=== PATIENT | female | born 1970 | race Caucasian/White ===

== ENCOUNTER → 2021-03-13 | Outpatient (CLI) | payer OTHER ==
[~2021-03-13] VITALS: Ht 165.1 cm; Wt 68.5 kg
[~2021-03-13] MED LIST: ASPI-1238 PO; EZET10TA17 PO; MULT-593 PO; ROSU20TA2 PO; VENL150C PO
== END | disposition home or self-care (01) ==
LOC: PREOP 05:34
PROVIDERS: ATTEND Surgery
DX: Z01.818 Encounter for other preprocedural examination (principal)

== ENCOUNTER 2021-03-19 08:01 | Day surgery (SDC) | payer OTHER ==
[2021-03-19] VITALS (8 sets, daily range): BP systolic 118–135; BP diastolic 59–107
[~2021-03-19] VITALS: Ht 165 cm; Wt 68.5 kg
--- OUTSIDE RECORDS SUMMARY | 2021-03-19 08:04 | XMS REPORT | CCD ---
Author Author Sarahi Fuentes Organization Radha Chau MD, [facility] Address [address] [place] [address] Phone Care Team Providers Care Building Rental Superintendent Name Role Phone Radha Chau PP Unavailable CCM Unavailable Summary Purpose Interface Exchange Insurance Providers Payer name Policy type / Coverage type Covered democrat ID Effective Begin Date Effective End Date [employer] and Llfe Insurance Commercial Insurance [id number] U nknown Unknown Family history Mother Diagnosis Age At Onset Osteoporosis Unknown Arthritis Unknown Father Diagnosis Age At Onset Hyperlipidemia Unknown Skin cancer Unknown Coronary Artery Disease Unknown Social History Social History Element Codes Description Effective Dates Marital status Unknown Ishan 02/08/2021 Number of children Unknown 3 02/08/[address]: 2361281 Quit less than 5 yea rs ago mar 2020 02/08/2021 Allergies, Adverse Reactions, Alerts Substance Reaction Codes Entered Date Inactivated Date Status hydrocodone pruritis, hives, Unknown 02/08/2021 No Inactive Date Active * OTHER REACTION - SEE ANSWER BOX toradol: hives/pruritis Unknown 02/08/2021 No Inactive Date Active SULFA(SULFONAMIDE ANTIBIOTICS) _, Unknown 02/08/2021 No In active Date Active ultram hives, pruritis, RxNorm: 41773 02/08/2021 No Inactive Vito e Active aleve pruritis RxNorm: 358179 02/08/2021 No Inactive Date Acti ve Problems Condition Codes Effective Dates Condition Status aortic aneurysm Unknown 02/08/2021 Active Hyperlipidemia Unknown 02/08/2021 Active Chronic left hip pain ICD-10: M25.552 ICD-9: 719.45 02/08/2021 Active Generalized anxiety disorder ICD-10: F41.1 ICD-9: 300.02 02/08/2021 Active Mixed hyperlipidemia ICD-10: E78.2 ICD-9: 272.4 02/08/2021 Active Other chronic pain ICD-10: G89.29 02/08/2021 Active Right knee pain ICD-10: m25.561 ICD-9: 719.46 02/08/2021 Active Medications Medication Codes Instructions Start Date Stop Date Status Fill Instructions Crestor 20 mg tablet RxNorm: 143476 1 Tablet(s) Oral every day 01/2607/21/2021 Active oxycodone-acetaminophen 5 mg-325 mg tablet RxNorm: 8968696 1 Tablet(s) Oral two times a day 02/16/2021 03/17/2021 Active oxycodone-acetaminophen 5 mg-325 mg tablet RxNorm: 3000826 1 Tablet(s) Oral two times a day 02/16/2021 02/16/2021 Inactive omega 3 500 cn-hon-wpb-B12 500 mcg-FA 1 mg-B6 12.5 mg- phytosterol cap RxNorm: 926474 1 Capsule(s) Oral every day 02/08/2021 No Stop Date Active Effexor XR 150 mg capsule,extended release RxNorm: 917512 1 Capsule(s) Oral every day 02/08/2021 No Stop Date Active Crestor 20 mg tablet RxNorm: 535544 1 Tablet(s) Oral every day 01/2402/22/2021 Inactive aspirin 81 mg chewable tablet RxNorm: 257724 1 Tablet(s) Oral e day 02/08/2021 No Stop Date Active acetaminophen 325 mg capsule RxNorm: 753726 2 Capsule(s) Oral a s needed 02/08/2021 No Stop Date Active Probiotic 100 billion cell capsule RxNorm: 1 Capsule(s) Oral every day 02/08/2021 No Stop Date Active Zetia 10 mg tablet RxNorm: 951898 1 Tablet(s) Oral every day 2020 No Stop Date Active Multi Vitamin oral RxNorm: oral 02/08/2021 Active oxycodone 5 mg capsule RxNorm: 3029675 oral 02/08/2021 02/15/2021 Inactive Medication Administered No Medication Administered data Immunizations No Immunization data Results No Results data Procedures No Procedures data Vital Signs Date Vital 02/08/2021 Blood Pressure 1: 130/72 Code: 8480-6 BMI: 24.8 Code: 16589-1 Heart Rate 1: 60 bpm Height: 5'5" Code: 8302-2 SpO2: 98% Temperature: 3 6.2 (C) / 97.2 (F) Weight: 149 lbs Code: 66385-6 Functional Status No Functional Status data Reason For Visit Reason For Visit Effective Dates Notes hip pain 02/08/2021 Encounters Encounter Performer Location Codes Date () OFFICE VISIT, NEW - LEVEL 3 Diagnosis: Other chronic pain[ICD10: G89.29] Diagnosis: Chronic left hip pain[ICD10: M25.552] Diagnosis: Right knee pain[ICD10: m25.561] Diagnosis: Generalized anxiety disorder[ICD10: F41.1] Diagnosis: Mixed hyperlipidemia[ICD10: E78.2] [facility] CPT-4: 34918 02/08/2021 Plan of Care Planned Activity Notes Codes Status Date Visit Plan: Chronic hip and knee pain - pt has chronic pain - has been maintained on current medications, has not sought out other medications, only uses PRN pain medications as directed, and understands the consequences of over- medication. Hyperlipidemia - check fasting labs Chronic anxiety - the pt has symptoms of chronic anxiety that have been fairly well controlled since the last office visit. The pt has expected periods of exacerbation with abatement of the symptoms with change in situational exposure. No change in current medications. 02/08/2021 Appointment: Brielle Fuentes WPtel: [address] [place], [place] [phone] New Patient 02/08/2021 Patient Education: Patient Medication Summary Completed 02/08/2021 Care Plan: Cbc With Differential Pending 02/08/2021 Care Plan: Comp Metabolic Pending Care Plan: Lipid Pending 02/08/2021 Care Plan: Tsh Pending 02/08/2021 Instructions Comment . Chronic hip and knee pain - pt has chr onic pain - has been maintained on current medications, has not sought out other medications, only uses PRN pain medications as directed, and understands the consequences of over-medication. Hyperlipidemia - check fasting labs Chronic anxiety - the pt has symptoms of chronic anxiety that have been fairly well controlled since the last office visit. The pt has expected periods of exacerbation with abatement of the symptoms with change in situational exposure. No change in current medications. Medical Equipment No Medical Equipment data Health Concerns Section Health Concerns data not found Goals Section Goals data not found Interventions Section Interventions data not found Health Status Evaluations/Outcomes Section Health Status Evaluations/Outcomes data not found Advance Directives No Advance Directive data
--- OUTSIDE RECORDS SUMMARY | 2021-03-19 08:04 | XMS REPORT | CCD ---
Author Author Sarahi Fuentes Organization Radha Chau MD, [facility] Address [address] [place] [address] Phone Care Team Providers Care Drafter Plumbing Name Role Phone Radha hCau PP Unavailable CCM Unavailable Summary Purpose Interface Exchange Insurance Providers Payer name Policy type / Coverage type Covered republican ID Effective Begin Date Effective End Date [employer] and Llfe Insurance Commercial Insurance [id number] U nknown Unknown Family history Mother Diagnosis Age At Onset Osteoporosis Unknown Arthritis Unknown Father Diagnosis Age At Onset Hyperlipidemia Unknown Skin cancer Unknown Coronary Artery Disease Unknown Social History Social History Element Codes Description Effective Dates Marital status Unknown Ishan 02/08/2021 Number of children Unknown 3 02/08/[address]: 5258433 Quit less than 5 yea rs ago mar 2020 02/08/2021 Allergies, Adverse Reactions, Alerts Substance Reaction Codes Entered Date Inactivated Date Status hydrocodone pruritis, hives, Unknown 02/08/2021 No Inactive Date Active * OTHER REACTION - SEE ANSWER BOX toradol: hives/pruritis Unknown 02/08/2021 No Inactive Date Active SULFA(SULFONAMIDE ANTIBIOTICS) _, Unknown 02/08/2021 No In active Date Active ultram hives, pruritis, RxNorm: 84892 02/08/2021 No Inactive Vito e Active aleve pruritis RxNorm: 213959 02/08/2021 No Inactive Date Acti ve Problems [...] Start Date Stop Date Status Fill Instructions Zetia 10 mg tablet RxNorm: 903999 1 Tablet(s) Oral every day 202007/12/2021 Active Crestor 20 mg tablet RxNorm: 527933 1 Tablet(s) Oral every day 01/2607/21/2021 Active oxycodone-acetaminophen 5 mg-325 mg tablet RxNorm: 6243097 1 Tablet(s) Oral two times a day 02/16/2021 03/17/2021 Active oxycodone-acetaminophen 5 mg-325 mg tablet RxNorm: 6794312 1 Tablet(s) Oral two times a day 02/16/2021 02/16/2021 Inactive omega 3 500 db-evj-xwm-B12 500 mcg-FA 1 mg-B6 12.5 mg- phytosterol cap RxNorm: 058525 1 Capsule(s) Oral every day 02/08/2021 No Stop Date Active Effexor XR 150 mg capsule,extended release RxNorm: 132442 1 Capsule(s) Oral every day 02/08/2021 No Stop Date Active aspirin 81 mg chewable tablet RxNorm: 796057 1 Tablet(s) Oral e very day 02/08/2021 No Stop Date Active acetaminophen 325 mg capsule RxNorm: 104999 2 Capsule(s) Oral a s needed 02/08/2021 No Stop Date Active Probiotic 100 billion cell capsule RxNorm: 1 Capsule(s) Oral every day 02/08/2021 No Stop Date Active Zetia 10 mg tablet RxNorm: 189312 1 Tablet(s) Oral every day 202003/15/2021 Inactive Crestor 20 mg tablet RxNorm: 098704 1 Tablet(s) Oral every day 01/2402/22/2021 Inactive Multi Vitamin oral RxNorm: oral 02/08/2021 Active oxycodone 5 mg capsule RxNorm: 9351582 oral 02/08/2021 02/15/2021 Inactive Medication Administered No Medication Administered data Immunizations No Immunization data Results No Results data Procedures No Procedures data Vital Signs Date Vital 02/08/2021 Blood Pressure 1: 130/72 Code: 8480-6 BMI: 24.8 Code: 93648-6 Heart Rate 1: 60 bpm Height: 5'5" Code: 8302-2 SpO2: 98% Temperature: 3 6.2 (C) / 97.2 (F) Weight: 149 lbs Code: 47122-3 Functional Status No Functional Status data Reason For Visit Reason For Visit Effective Dates Notes hip pain 02/08/2021 Encounters Encounter Performer Location Codes Date () OFFICE VISIT, NEW - LEVEL 3 Diagnosis: Other chronic pain[ICD10: G89.29] Diagnosis: Chronic left hip pain[ICD10: M25.552] Diagnosis: Right knee pain[ICD10: m25.561] Diagnosis: Generalized anxiety disorder[ICD10: F41.1] Diagnosis: Mixed hyperlipidemia[ICD10: E78.2] [facility] CPT-4: 70108 02/08/2021 Plan of Care Planned Activity Notes [...] current medications. 02/08/2021 Appointment: Brielle Fuentes WPtel: [address] [place], [place] [phone] New Patient 02/08/2021 Patient Education: Patient Medication [...]
--- OUTSIDE RECORDS SUMMARY | 2021-03-19 08:04 | XMS REPORT | CCD ---
Author Author Sarahi Fuentes Organization Radha Chau MD, [facility] Address [address] [place] [address] Phone Care Team Providers Care Data Processing Mechanic Name Role Phone Radha Chau PP Unavailable CCM Unavailable Summary Purpose Interface Exchange Insurance Providers Payer name Policy type / Coverage type Covered republican ID Effective Begin Date Effective End Date C[employer] Health and Llfe Insurance Commercial Insurance [id number] U nknown Unknown Family history Mother Diagnosis Age At Onset Osteoporosis Unknown Arthritis Unknown Father Diagnosis Age At Onset Hyperlipidemia Unknown Skin cancer Unknown Coronary Artery Disease Unknown Social History Social History Element Codes Description Effective Dates Marital status Unknown Ishan 02/08/2021 Number of children Unknown 3 02/08/[address]: 4550695 Quit less than 5 yea rs ago mar 2020 02/08/2021 Allergies, Adverse Reactions, Alerts Substance Reaction Codes Entered Date Inactivated Date Status hydrocodone pruritis, hives, Unknown 02/08/2021 No Inactive Date Active * OTHER REACTION - SEE ANSWER BOX toradol: hives/pruritis Unknown 02/08/2021 No Inactive Date Active SULFA(SULFONAMIDE ANTIBIOTICS) _, Unknown 02/08/2021 No In active Date Active ultram hives, pruritis, RxNorm: 58557 02/08/2021 No Inactive Vito e Active aleve pruritis RxNorm: 298507 02/08/2021 No Inactive Date Acti ve Problems [...] Start Date Stop Date Status Fill Instructions oxycodone-acetaminophen 5 mg-325 mg tablet RxNorm: 5632600 1 Tablet(s) Oral two times a day 02/16/2021 03/17/2021 Active oxycodone-acetaminophen 5 mg-325 mg tablet RxNorm: 9357460 1 Tablet(s) Oral two times a day 02/16/2021 02/16/2021 Inactive omega 3 500 rm-gaj-kxb-B12 500 mcg-FA 1 mg-B6 12.5 mg- phytosterol cap RxNorm: 924175 1 Capsule(s) Oral every day 02/08/2021 No Stop Date Active Effexor XR 150 mg capsule,extended release RxNorm: 533984 1 Capsule(s) Oral every day 02/08/2021 No Stop Date Active Crestor 20 mg tablet RxNorm: 413336 1 Tablet(s) Oral every day 01/24 No Stop Date Active aspirin 81 mg chewable tablet RxNorm: 045283 1 Tablet(s) Oral e very day 02/08/2021 No Stop Date Active acetaminophen 325 mg capsule RxNorm: 283342 2 Capsule(s) Oral a s needed 02/08/2021 No Stop Date Active Probiotic 100 billion cell capsule RxNorm: 1 Capsule(s) Oral every day 02/08/2021 No Stop Date Active Zetia 10 mg tablet RxNorm: 579162 1 Tablet(s) Oral every day 2020 No Stop Date Active Multi Vitamin oral RxNorm: oral 02/08/2021 Active oxycodone 5 mg capsule RxNorm: 9273728 oral 02/08/2021 02/15/2021 Inactive Medication Administered No Medication Administered data Immunizations No Immunization data Results No Results data Procedures No Procedures data Vital Signs Date Vital 02/08/2021 Blood Pressure 1: 130/72 Code: 8480-6 BMI: 24.8 Code: 28485-4 Heart Rate 1: 60 bpm Height: 5'5" Code: 8302-2 SpO2: 98% Temperature: 3 6.2 (C) / 97.2 (F) Weight: 149 lbs Code: 58415-2 Functional Status No Functional Status data Reason For Visit Reason For Visit Effective Dates Notes hip pain 02/08/2021 Encounters Encounter Performer Location Codes Date () OFFICE VISIT, NEW - LEVEL 3 Diagnosis: Other chronic pain[ICD10: G89.29] Diagnosis: Chronic left hip pain[ICD10: M25.552] Diagnosis: Right knee pain[ICD10: m25.561] Diagnosis: Generalized anxiety disorder[ICD10: F41.1] Diagnosis: Mixed hyperlipidemia[ICD10: E78.2] [facility] CPT-4: 72454 02/08/2021 Plan of Care Planned Activity Notes [...] current medications. 02/08/2021 Appointment: Brielle Fuentes WPtel: [address] [place], [place] [phone] New Patient 02/08/2021 Patient Education: Patient Medication [...]
--- OUTSIDE RECORDS SUMMARY | 2021-03-19 08:04 | XMS REPORT | CCD ---
Author Author Sarahi Fuentes Organization Radha Chau MD, [facility] Address [address] [place] [address] Phone Care Team Providers Care Aitchbone Breaker Name Role Phone Radha Chau PP Unavailable CCM Unavailable Summary Purpose Interface Exchange Insurance Providers Payer name Policy type / Coverage type Covered alliance party ID Effective Begin Date Effective End Date [employer] and Llfe Insurance Commercial Insurance [id number] U nknown Unknown Family history Mother Diagnosis Age At Onset Osteoporosis Unknown Arthritis Unknown Father Diagnosis Age At Onset Hyperlipidemia Unknown Skin cancer Unknown Coronary Artery Disease Unknown Social History Social History Element Codes Description Effective Dates Marital status Unknown Ishan 02/08/2021 Number of children Unknown 3 02/08/[address]: 9192023 Quit less than 5 yea rs ago mar 2020 02/08/2021 Allergies, Adverse Reactions, Alerts Substance Reaction Codes Entered Date Inactivated Date Status hydrocodone pruritis, hives, Unknown 02/08/2021 No Inactive Date Active * OTHER REACTION - SEE ANSWER BOX toradol: hives/pruritis Unknown 02/08/2021 No Inactive Date Active SULFA(SULFONAMIDE ANTIBIOTICS) _, Unknown 02/08/2021 No In active Date Active ultram hives, pruritis, RxNorm: 21768 02/08/2021 No Inactive Vito e Active aleve pruritis RxNorm: 512862 02/08/2021 No Inactive Date Acti ve Problems [...] Start Date Stop Date Status Fill Instructions omega 3 500 dc-ocg-cid-B12 500 mcg-FA 1 mg-B6 12.5 mg- phytosterol cap RxNorm: 847816 1 Capsule(s) Oral every day 02/08/2021 No Stop Date Active Effexor XR 150 mg capsule,extended release RxNorm: 997165 1 Capsule(s) Oral every day 02/08/2021 No Stop Date Active Crestor 20 mg tablet RxNorm: 772088 1 Tablet(s) Oral every day 01/24 No Stop Date Active aspirin 81 mg chewable tablet RxNorm: 624332 1 Tablet(s) Oral e very day 02/08/2021 No Stop Date Active acetaminophen 325 mg capsule RxNorm: 075686 2 Capsule(s) Oral a s needed 02/08/2021 No Stop Date Active Probiotic 100 billion cell capsule RxNorm: 1 Capsule(s) Oral every day 02/08/2021 No Stop Date Active Zetia 10 mg tablet RxNorm: 853429 1 Tablet(s) Oral every day 2020 No Stop Date Active Multi Vitamin oral RxNorm: oral 02/08/2021 Active oxycodone 5 mg capsule RxNorm: 2317907 oral 02/08/2021 Active Medication Administered No Medication Administered data Immunizations No Immunization data Results No Results data Procedures No Procedures data Vital Signs Date Vital 02/08/2021 Blood Pressure 1: 130/72 Code: 8480-6 BMI: 24.8 Code: 37592-5 Heart Rate 1: 60 bpm Height: 5'5" Code: 8302-2 SpO2: 98% Temperature: 3 6.2 (C) / 97.2 (F) Weight: 149 lbs Code: 50450-0 Functional Status No Functional Status data Reason For Visit Reason For Visit Effective Dates Notes hip pain 02/08/2021 Encounters Encounter Performer Location Codes Date () OFFICE VISIT, NEW - LEVEL 3 Diagnosis: Other chronic pain[ICD10: G89.29] Diagnosis: Chronic left hip pain[ICD10: M25.552] Diagnosis: Right knee pain[ICD10: m25.561] Diagnosis: Generalized anxiety disorder[ICD10: F41.1] Diagnosis: Mixed hyperlipidemia[ICD10: E78.2] [facility] CPT-4: 47472 02/08/2021 Plan of Care Planned Activity Notes [...] exposure. No change in current medications. 02/08/2021 Patient Education: Patient Medication Summary Completed [...]
--- OUTSIDE RECORDS SUMMARY | 2021-03-19 08:04 | XMS REPORT | CCD ---
Author Author Sarahi Fuentes Organization Radha Chau MD, [facility] Address [address] [place] [address] Phone Care Team Providers Care Street Supervisor Name Role Phone Radha Chau PP Unavailable CCM Unavailable Summary Purpose Interface Exchange Insurance Providers Payer name Policy type / Coverage type Covered alliance party ID Effective Begin Date Effective End Date C[employer] and Llfe Insurance Commercial Insurance [id number] U nknown Unknown Family history Mother Diagnosis Age At Onset Osteoporosis Unknown Arthritis Unknown Father Diagnosis Age At Onset Hyperlipidemia Unknown Skin cancer Unknown Coronary Artery Disease Unknown Social History Social History Element Codes Description Effective Dates Marital status Unknown Ishan 02/08/2021 Number of children Unknown 3 02/08/[address]: 6463945 Quit less than 5 yea rs ago mar 2020 02/08/2021 Allergies, Adverse Reactions, Alerts Substance Reaction Codes Entered Date Inactivated Date Status hydrocodone pruritis, hives, Unknown 02/08/2021 No Inactive Date Active * OTHER REACTION - SEE ANSWER BOX toradol: hives/pruritis Unknown 02/08/2021 No Inactive Date Active SULFA(SULFONAMIDE ANTIBIOTICS) _, Unknown 02/08/2021 No In active Date Active ultram hives, pruritis, RxNorm: 29642 02/08/2021 No Inactive Vito e Active aleve pruritis RxNorm: 232431 02/08/2021 No Inactive Date Acti ve Problems [...] Fill Instructions Crestor 20 mg tablet RxNorm: 232702 1 Tablet(s) Oral every day 01/2607/21/2021 Active oxycodone-acetaminophen 5 mg-325 mg tablet RxNorm: 9960148 1 Tablet(s) Oral two times a day 02/16/2021 03/17/2021 Active oxycodone-acetaminophen 5 mg-325 mg tablet RxNorm: 3293478 1 Tablet(s) Oral two times a day 02/16/2021 02/16/2021 Inactive omega 3 500 of-iyz-rjf-B12 500 mcg-FA 1 mg-B6 12.5 mg- phytosterol cap RxNorm: 131504 1 Capsule(s) Oral every day 02/08/2021 No Stop Date Active Effexor XR 150 mg capsule,extended release RxNorm: 834554 1 Capsule(s) Oral every day 02/08/2021 No Stop Date Active aspirin 81 mg chewable tablet RxNorm: 706003 1 Tablet(s) Oral e day 02/08/2021 No Stop Date Active acetaminophen 325 mg capsule RxNorm: 918470 2 Capsule(s) Oral a s needed 02/08/2021 No Stop Date Active Probiotic 100 billion cell capsule RxNorm: 1 Capsule(s) Oral every day 02/08/2021 No Stop Date Active Zetia 10 mg tablet RxNorm: 589102 1 Tablet(s) Oral every day 2020 No Stop Date Active Crestor 20 mg tablet RxNorm: 715598 1 Tablet(s) Oral every day 01/2402/22/2021 Inactive Multi Vitamin oral RxNorm: oral 02/08/2021 Active oxycodone 5 mg capsule RxNorm: 8468482 oral 02/08/2021 02/15/2021 Inactive Medication Administered No Medication Administered data Immunizations No Immunization data Results No Results data Procedures No Procedures data Vital Signs Date Vital 02/08/2021 Blood Pressure 1: 130/72 Code: 8480-6 BMI: 24.8 Code: 39814-2 Heart Rate 1: 60 bpm Height: 5'5" Code: 8302-2 SpO2: 98% Temperature: 3 6.2 (C) / 97.2 (F) Weight: 149 lbs Code: 01482-8 Functional Status No Functional Status data Reason For Visit Reason For Visit Effective Dates Notes hip pain 02/08/2021 Encounters Encounter Performer Location Codes Date () OFFICE VISIT, NEW - LEVEL 3 Diagnosis: Other chronic pain[ICD10: G89.29] Diagnosis: Chronic left hip pain[ICD10: M25.552] Diagnosis: Right knee pain[ICD10: m25.561] Diagnosis: Generalized anxiety disorder[ICD10: F41.1] Diagnosis: Mixed hyperlipidemia[ICD10: E78.2] [facility] CPT-4: 43476 02/08/2021 Plan of Care Planned Activity Notes [...] current medications. 02/08/2021 Appointment: Brielle Fuentes WPtel: [address] [place], [place] [phone] New Patient 02/08/2021 Patient Education: Patient Medication [...]
--- OUTSIDE RECORDS SUMMARY | 2021-03-19 08:04 | XMS REPORT | Clinical Summary ---
Author Author [facility] Organization [facility] Address Unknown Phone Unavailable Care Team Providers Care Fleet Salesperson Name Role Phone PCP Unavailable Allergies Not on File Medications Not on file Active Problems Not on file Social History Date Tobacco Use Types Packs/Day Years Used Never Assessed Sex Assigned at Date Recorded Not on file Last Filed Vital Signs Not on file Plan of Treatment Not on file Results Not on filefrom Last 3 Months
[2021-03-19] MEDS ORDERED: LACTATED RINGERS 1,000 ML IV STA (08:13)
[2021-03-19] MEDS ORDERED: LACTATED RINGERS 1,000 ML IV ONE (08:38)
--- NOTE | 2021-03-19 09:19 | Progress Note-Pre Operative ---
Pre-Operative Progress Note H&P Reviewed The H&P was reviewed, patient examined and no changes noted. Time Seen by Provider: 08:52 Date H&P Reviewed: Mar 19, 2021 Time H&P Reviewed: 08:52 Pre-Operative Diagnosis: Screening colon FAHEEM GUERRA DO Mar 19, 2021 09:19
[2021-03-19] MEDS ORDERED: MIDAZOLAM 2 MG/2 ML (VERSED) VIAL ONE (09:25)
[2021-03-19] MEDS ORDERED: PROPOFOL INJECTION 50 ML IV ONE ×2 (09:25→09:45)
[2021-03-19] MEDS ORDERED: ATROPINE INJ 0.4 MG/ML SDV ONE (09:52)
--- NOTE | 2021-03-19 10:55 | Progress Note-Post Operative ---
Post-Operative Progess Note Surgeon (s)/Screener And Blender (s) Surgeon FAHEEM GUERRA DO Screener And Blender: EMORY CumminsII Pre-Operative Diagnosis Screening colon Post-Operative Diagnosis Polyp int hemorrhoids Procedure & Operative Findings Date of Procedure 03/19/21 Procedure Performed/Findings Colon with hot bx PROCEDURE NOTE: After informed consent was obtained, the patient was brought to the endoscopy suite, placed in bed in left lateral decubitus position. She was administered IV sedation by the COMPUTER BUILDER who then monitored her vitals the entire time, heart rate, blood pressure and pulse ox and the scope was inserted, pushed all the way to about 150 cm and pushed into the cecum. Had a very hard time trying to get past the Sigmoid; spent a half hour moved position and tried outside pressure. Finally, switched to a pediatric scop and able to get all the way in. In the cecum took a picture of appendiceal orifice and then slowly withdrew the scope insufflating to look circumferentially at the chandra starting in the cecum, up the ascending colon to the hepatic flexure. Then down the transverse colon to the splenic flexure and into the descending colon. Finally down the sigmoid; where I saw a small polyp and elected to do a hot biopsy to remove it. Into the rectal vault and retroflexed the scope. Took picture of the internal hemorrhoids- probably grade II. The patient tolerated the procedure. She was recovered in endoscopy suite. Anesthesia Type IV sedation by COMPUTER BUILDER Estimated Blood Loss Estimated blood loss (mL): scant Specimens/Packing Specimens Removed sigmoid polyp FAHEEM GUERRA DO Mar 19, 2021 10:55
--- NOTE | 2021-03-19 10:55 | Endoscopy Discharge Instruct ---
Endo Procedure/Findings Findings 1.: Polyp 2.: Internal Hemorrhoids Discharge Instructions - Activity: You might feel a little sleepy until tomorrow. This is due to the medicine you received to relax you. Until tomorrow, you should: NOT drive a car, operate machinery or power tools. NOT drink any alcoholic beverages. NOT make any important decisions or sign importortant papers. Do not return to work until tomorrow, unless otherwise instructed. Resume previous activities tomorrow. Diet: Start by taking liquids. If you tolerate liquids, advance to solid food. 1.: Colonscopy in 5 years Notify Physician - If you experience excessive bleeding, unusual abdominal pain, fever, or chest pain, contact your doctor immediately. FAHEEM GUERRA DO Mar 19, 2021 10:55
[2021-03-19] MEDS ORDERED: ONDANSETRON 4 MG/2 ML (SDV) Z0FRAN ONE (10:58)
[2021-03-19] MEDS ORDERED: ONDANSETRON 4 MG/2 ML (SDV) Z0FRAN IVP ONE (11:05)
--- NOTE | 2021-03-19 13:20 | Anesthesia-General Post-Op ---
MAC Patient Condition Mental Status/LOC: Same as Preop Cardiovascular: Satisfactory Nausea/Vomiting: Absent Respiratory: Satisfactory Pain: Controlled Complications: Absent Post Op Complications Complications None Follow Up Care/Instructions Patient Instructions None needed. Anesthesiology Discharge Order Discharge Order Patient is doing well, no complaints, stable vital signs, no apparent adverse anesthesia problems. No complications reported per nursing. DENISE SLATER CRNA Mar 19, 2021 13:20
== END 2021-03-19 12:25 | disposition home or self-care (01) ==
LOC: ENDO 08:01
PROVIDERS: ATTEND Surgery
DX: Z12.11 Encounter for screening for malignant neoplasm of colon (principal); K63.5 Polyp of colon; K64.8 Other hemorrhoids; I10 Essential (primary) hypertension; F32.A Depression, unspecified; Z90.49 Acquired absence of other specified parts of digestive tract; Z90.89 Acquired absence of other organs; E78.00 Pure hypercholesterolemia, unspecified; F41.9 Anxiety disorder, unspecified; Z79.899 Other long term (current) drug therapy

== ENCOUNTER 2022-09-27 11:02 | Emergency (ER) | payer BC, OTHER ==
[~2022-09-27] VITALS: Ht 167 cm; Wt 68.5 kg
[~2022-09-27 11:02] MED LIST changes: -VENL150C PO; +VENL150C3 PO
[2022-09-27 11:03] VITALS: BP 135/97
--- NOTE | 2022-09-27 11:16 | Diagnostic Imaging Report ---
EXAMINATION: CT head without contrast. TECHNIQUE: Multiple contiguous axial images were obtained through the brain without the use of intravenous contrast. All CT scans use one or more of the following dose optimizing techniques: automated exposure control, MA and/or KvP adjustment based on patient size and exam type or iterative reconstruction. HISTORY: Slurred speech. Dizziness. Concern for stroke. COMPARISON: None available. FINDINGS: No large acute territorial ischemia, mass, or hemorrhage. No midline shift or mass effect. The ventricles, cortical sulci, and basilar cisterns are patent and unremarkable. The orbits are normal. Paranasal sinuses are normal. Mastoid air cells are clear. No soft tissue abnormality is seen. No osseus lesions or fractures are seen. IMPRESSION: 1. No large acute territorial ischemia, mass, or hemorrhage. Dictated by: Dictated on workstation # [id number]
[2022-09-27 11:32] LABS: BASOPHILS % (AUTO) 1 % (0-10); EOSINOPHILS # (AUTO) 0.1 10^3/uL (0.0-0.3); EOSINOPHILS % (AUTO) 2 % (0-10); HEMATOCRIT 42 % (35-52); HEMOGLOBIN 14.1 g/dL (11.5-16.0); LYMPHOCYTES # (AUTO) 2.7 10^3/uL (1.0-4.0); LYMPHOCYTES % (AUTO) 37 % (12-44); MEAN CORPUSCULAR HEMOGLOBIN 32 pg (25-34); MEAN CORPUSCULAR HGB CONC 34 g/dL (32-36); MEAN CORPUSCULAR VOLUME 95 fL (80-99); MEAN PLATELET VOLUME 8.9 fL (9.0-12.2); MONOCYTES # (AUTO) 0.6 10^3/uL (0.0-1.0); MONOCYTES % (AUTO) 8 % (0-12); NEUTROPHILS # (AUTO) 3.9 10^3/uL (1.8-7.8); NEUTROPHILS % (AUTO) 53 % (42-75); PLATELET COUNT 290 10^3/uL (130-400); WHITE BLOOD COUNT 7.3 10^3/uL (4.3-11.0)
[2022-09-27 11:34] LABS: ALBUMIN 4.6 GM/DL (3.2-4.5)
[2022-09-27 11:35] LABS: CHLORIDE 104 MMOL/L (98-107); SODIUM 140 MMOL/L (135-145)
[2022-09-27 11:36] LABS: CALCIUM 10.1 MG/DL (8.5-10.1)
[2022-09-27 11:37] LABS: GLUCOSE 88 MG/DL (70-105); TOTAL PROTEIN 7.8 GM/DL (6.4-8.2)
[2022-09-27 11:38] LABS: CARBON DIOXIDE 26 MMOL/L (21-32); INR 0.9 (0.8-1.4); PARTIAL THROMBOPLASTIN TIME 32 SEC (24-35); PROTHROMBIN TIME PATIENT 13.1 SEC (12.2-14.7)
[2022-09-27 11:39] LABS: BILIRUBIN,TOTAL 0.2 MG/DL (0.1-1.0); FIBRIN DEGRADATION PRODUCTS < 0.27 UG/ML (0.00-0.49)
--- NOTE | 2022-09-27 11:39 | Diagnostic Imaging Report ---
INDICATION: Slurred speech. Dizziness COMPARISON: None FINDINGS: Single frontal view of the chest demonstrates normal heart size and pulmonary vascularity. The lungs are well aerated and clear. No large pleural effusion or pneumothorax is seen. The visualized osseous structures show no acute abnormalities. IMPRESSION: 1. No acute cardiopulmonary process. Dictated by: Dictated on workstation # [id number]
[2022-09-27 11:40] LABS: ALKALINE PHOSPHATASE 96 U/L (40-136)
[2022-09-27 11:41] LABS: CREATININE SERUM 0.79 MG/DL (0.60-1.30); GFR ESTIMATED 89
[2022-09-27 11:42] LABS: BUN/CREATININE RATIO 16
[2022-09-27 11:43] LABS: ALANINE AMINOTRANSFERASE 22 U/L (0-55)
[2022-09-27] MEDS ORDERED: IOHEXOL 350 MG/ML 100 ML (OMNIPAQUE 350) VIAL IV ONE (11:45)
[2022-09-27] MEDS ORDERED: NS 100 ML (IVPB) BAG IV ONE (11:45)
--- NOTE | 2022-09-27 12:24 | Diagnostic Imaging Report ---
PROCEDURE: CT chest with and without contrast. TECHNIQUE: Multiple contiguous axial images were obtained through the chest before and after administration of intravenous contrast. Auto Exposure Controls were utilized during the CT exam to meet ALARA standards for radiation dose reduction. INDICATION: Thoracic aortic aneurysm. COMPARISON: None available. FINDINGS: The thoracic aorta is normal in caliber. Maximum dimension of the aorta is in the mid ascending aorta measuring 3.4 cm. There is no aortic dissection or penetrating atherosclerotic ulcer. Thyroid is normal. No subclavicular or axillary lymphadenopathy. No mediastinal or hilar lymphadenopathy. Heart is normal in size and there is no pericardial effusion. No pleural effusion or pneumothorax. No abnormality within the trachea. There are no suspicious pulmonary nodules. No pneumonia or edema. Cholecystectomy has been performed with reservoir effect causing dilation of the common bile duct. No acute abnormality upper abdomen. No worrisome focal osseous lesions. IMPRESSION: 1. No aortic aneurysm or acute aortic syndrome. Dictated by: Dictated on workstation # [id number]
--- NOTE | 2022-09-27 12:30 | Diagnostic Imaging Report ---
PROCEDURE: CT angiography of the head and CT angiography of the neck with and without contrast. TECHNIQUE: Contiguous noncontrast images were obtained from the skull base through the vertex. After intravenous contrast administration, helical CT angiography of the neck was performed. Source data was reformatted into 3D MIP projections. Delayed post contrast acquisition was also obtained. Auto Exposure Controls were utilized during the CT exam to meet ALARA standards for radiation dose reduction. INDICATION: Stroke. Slurred speech. COMPARISON: CT head without contrast 09/27/2022. FINDINGS: Post contrast head CT continues demonstrate no evidence of a large territorial infarction or hemorrhage. No hydrocephalus or extra-axial fluid collections. No abnormal intracranial enhancement. CTA demonstrates a left common carotid originating from the innominate. Dominant left vertebral artery. The basilar, bilateral vertebral, common carotid, internal carotid, anterior cerebral, middle cerebral and posterior cerebral arteries are widely patent without evidence aneurysm or dissection. The dural venous sinuses are normally opacified. Mild spondylotic changes in the cervical spine. No acute osseous findings. Paranasal sinuses and mastoids are clear. Visualized paravertebral soft tissues demonstrate no acute findings. The lung apices are clear. IMPRESSION: No large vessel occlusion. No high-grade narrowing, aneurysm or dissection involving major arteries in the head and neck. Dictated by: Dictated on workstation # [id number]
[2022-09-27] MEDS ORDERED: LACTATED RINGERS 1,000 ML IV ONE (13:15)
[2022-09-27] MEDS ORDERED: ACETAMINOPHEN 500 MG TAB (TYLENOL) PO ONE (13:15)
--- NOTE | 2022-09-27 13:52 | Diagnostic Imaging Report ---
PROCEDURE: MR imaging brain without contrast. TECHNIQUE: Multiplanar, multisequence MR imaging of the brain was performed without contrast. INDICATION: Slurred speech and right arm numbness. COMPARISON: None available. FINDINGS: No space occupying mass. No restricted diffusion to indicate acute infarct. No gradient blooming hypointensities to suggest hemorrhage or AVM. No hydrocephalus or midline shift. A few punctate foci of subcortical FLAIR hyperintensity in the bilateral frontal region are sequelae of chronic microvascular ischemic change. Major arterial flow voids are preserved. Sella and suprasellar regions are normal. No Chiari malformation. No sagging of the midbrain. The paranasal sinuses are clear. Mastoid air cells are clear. Orbits are normal. No focal calvarial lesion. IMPRESSION: 1. No acute intracranial process. There is no infarct, hemorrhage or hydrocephalus. 2. There are few foci of age-appropriate chronic microvascular ischemic changes in the deep white matter. Dictated by: Dictated on workstation # [id number]
[2022-09-27 14:08] LABS: BILIRUBIN,URINE NEGATIVE (NEGATIVE); CLARITY,URINE CLEAR; COLOR,URINE YELLOW; GLUCOSE, URINE (UA) NEGATIVE (NEGATIVE); KETONES,URINE NEGATIVE (NEGATIVE); LEUKOCYTE ESTERASE ,URINE NEGATIVE (NEGATIVE); NITRITE,URINE NEGATIVE (NEGATIVE); PROTEIN,URINE NEGATIVE (NEGATIVE)
[2022-09-27 14:16] LABS: BACTERIA,URINE NEGATIVE /HPF
--- NOTE | 2022-09-27 14:23 | ED Neurological Problem ---
General Chief Complaint: Neuro-Stroke Like Symptoms Stated Complaint: STROKE-LIKE SYMPTOMS Nursing Triage Note: ARRIVES VIA EMS FROM HER PLACE OF EMPLOYMENT. PATIENT TAKEN DIRECTLY TO CT FOR SCAN. STROKE ACTIVATION AT 1058. PATIENT BEGAN HAVING SYMPTOMS AROUND 1018 WITH A C/O HEADACHE, SLURRED SPEECH, AND RIGHT SIDED FACIAL NUMBNESS. Source: patient, family, EMS Exam Limitations: no limitations History of Present Illness Date Seen by Provider: September 27, 2022 Allergies and Home Medications Allergies Coded Allergies: Sulfa (Sulfonamide Antibiotics) (Unverified Allergy, Unknown, 03/13/21) ketorolac (Unverified Allergy, Unknown, 03/13/21) naproxen (Unverified Allergy, Unknown, 03/13/21) tramadol (Unverified Allergy, Unknown, 03/13/21) Patient Home Medication List Aspirin (Aspirin EC) 81 Mg Tablet.dr, 81 MG PO DAILY, (Reported) Entered as Reported by: TREVER ALLEN on 03/13/21 1247 Ezetimibe (Zetia) 10 Mg Tablet, 10 MG PO DAILY, (Reported) Entered as Reported by: TREVER ALLEN on 03/13/21 1247 Multivitamin with Minerals (Multiple Vitamin) 1 Each Tablet, 1 EACH PO DAILY, (Reported) Entered as Reported by: TREVER ALLEN on 03/13/21 1247 Rosuvastatin Calcium (Crestor) 20 Mg Tablet, 20 MG PO DAILY, (Reported) Entered as Reported by: TREVER ALLEN on 03/13/21 1247 Venlafaxine HCl (Effexor Xr) 150 Mg Cap.er.24h, 150 MG PO DAILY, (Reported) Entered as Reported by: TREVER ALLEN on 03/13/21 1247 Past Jxwvyup-Wtaxnr-Yjtoji Hx Patient Social History Tobacco Use?: Yes Tobacco type used: Cigarettes Smoking Status: Current Everyday Smoker Use of E-Cig and/or Vaping dev: No Substance use?: No Alcohol Use?: No Pt feels they are or have been: No Immunizations Up To Date Influenza Vaccine Up-to-Date: Yes; Up-to-Date First/Initial COVID19 Vaccinat: 2 shots Second COVID19 Vaccination Vito: YES Past Medical History Surgery/Hospitalization HX: pmhDEPRESSION, ANXIETY, HIGH CHOLESTEROL TOTAL HYSTERECTOMY, APPENDECTOMY, CHOLECYSTECTOMY Surgeries: Yes Adenoidectomy, Appendectomy, Gallbladder, Hysterectomy, Orthopedic, Tonsillectomy Respiratory: No Cardiac: Yes Hypertension Neurological: No Genitourinary: No Gastrointestinal: No Musculoskeletal: No Endocrine: No HEENT: No Cancer: No Psychosocial: Yes Anxiety, Depression Integumentary: No Blood Disorders: No Physical Exam Vital Signs Vital Signs - First Documented 09/27/22 11:03 Temp 36.6 Pulse 68 Resp 18 B/P (MAP) 135/97 Pulse Ox 95 O2 Delivery Room Air Capillary Refill : Less Than 3 Seconds Height, Weight, BMI Height: '" Weight: lbs. oz. kg; 24.00 BMI Method: Stroke NIH Stroke Scale Assessment Level of Consciousness: 0=Alert (0), Level of Consciousness-Questions: 0=Answers both month/age (0), LOC Commands: 0=Performs both tasks (0), Visual Villatoro: 0=No visual loss (0), Facial Movement (Facial Paresis): 0=Normal symmetrical mnt (0), Motor Function-Arms Right: 1=Drift (1), Motor Function- Arms Left: 0=No drift (0), Motor Function-Legs Right: 0=No drift (0), Motor Function-Legs Left: 0=No drift (0), Limb Ataxia: 0=Absent (0), Sensory: 0=Normal:no loss (0), Best Language: 0=No aphasia (0), Dysarthria: 1=Mild to moderate loss (1), Extinction & Inattention: 0=No abnormality (0), Total: Progress/Results/Core Measures Results/Orders Lab Results Laboratory Tests Test 09/27/22 11:18 09/27/22 12:27 09/27/22 14:00 Range/Units White Blood Count 7.3 4.3-11.0 10^3/uL Red Blood Count 4.42 3.80-5.11 10^6/uL Hemoglobin 14.1 11.5-16.0 g/dL Hematocrit 42 35-52 % Mean Corpuscular Volume 95 80-99 fL Mean Corpuscular Hemoglobin 32 25-34 pg Mean Corpuscular Hemoglobin Concent 34 32-36 g/dL Red Cell Distribution Width 13.3 10.0-14.5 % Platelet Count 290 130-400 10^3/uL Mean Platelet Volume 8.9 L 9.0-12.2 fL Immature Granulocyte % (Auto) 0 % Neutrophils (%) (Auto) 53 42-75 % Lymphocytes (%) (Auto) 37 12-44 % Monocytes (%) (Auto) 8 0-12 % Eosinophils (%) (Auto) 2 0-10 % Basophils (%) (Auto) 1 0-10 % Neutrophils # (Auto) 3.9 1.8-7.8 10^3/uL Lymphocytes # (Auto) 2.7 1.0-4.0 10^3/uL Monocytes # (Auto) 0.6 0.0-1.0 10^3/uL Eosinophils # (Auto) 0.1 0.0-0.3 10^3/uL Basophils # (Auto) 0.0 0.0-0.1 10^3/uL Immature Granulocyte # (Auto) 0.0 0.0-0.1 10^3/uL Prothrombin Time 13.1 12.2-14.7 SEC INR Comment 0.9 0.8-1.4 Activated Partial Thromboplast Time 32 24-35 SEC D-Dimer < 0.27 0.00-0.49 UG/ML Sodium Level 140 135-145 MMOL/L Potassium Level 4.0 3.6-5.0 MMOL/L Chloride Level 104 98-107 MMOL/L Carbon Dioxide Level 26 21-32 MMOL/L Anion Gap 10 5-14 MMOL/L Blood Urea Nitrogen 13 7-18 MG/DL Creatinine 0.79 0.60-1.30 MG/DL Estimat Glomerular Filtration Rate 89 BUN/Creatinine Ratio 16 Glucose Level 88 70-105 MG/DL Calcium Level 10.1 8.5-10.1 MG/DL Corrected Calcium 8.5-10.1 MG/DL Total Bilirubin 0.2 0.1-1.0 MG/DL Aspartate Amino Transf (AST/SGOT) 21 5-34 U/L Alanine Aminotransferase (ALT/SGPT) 22 0-55 U/L Alkaline Phosphatase 96 40-136 U/L Troponin I < 0.028 <0.028 NG/ML Total Protein 7.8 6.4-8.2 GM/DL Albumin 4.6 H 3.2-4.5 GM/DL Glucometer 82 70-110 MG/DL Urine Color YELLOW Urine Clarity CLEAR Urine pH 7.0 5-9 Urine Specific [place] <=1.005 1.016-1.022 Urine Protein NEGATIVE NEGATIVE Urine Glucose (UA) NEGATIVE NEGATIVE Urine Ketones NEGATIVE NEGATIVE Urine Nitrite NEGATIVE NEGATIVE Urine Bilirubin NEGATIVE NEGATIVE Urine Urobilinogen 0.2 < = 1.0 MG/DL Urine Leukocyte Esterase NEGATIVE NEGATIVE Urine RBC (Auto) NEGATIVE NEGATIVE Urine RBC NONE /HPF Urine WBC NONE /HPF Urine Squamous Epithelial Cells 5-10 /HPF Urine Crystals NONE /LPF Urine Bacteria NEGATIVE /HPF Urine Casts NONE /LPF Urine Mucus NEGATIVE /LPF Urine Culture Indicated NO My Orders Orders - GREGORY RIVERO MD Ct Head Wo-R/O Stroke (09/27/22 11:03) Cbc With Automated Diff (09/27/22 11:04) Protime With Inr (09/27/22 11:04) Partial Thromboplastin Time (09/27/22 11:04) Comprehensive Metabolic Panel (09/27/22 11:04) Fibrin Degradation Products (09/27/22 11:04) Troponin I Eliud (09/27/22 11:04) Ua Culture If Indicated (09/27/22 11:04) Chest 1 View, Ap/Pa Only (09/27/22 11:04) Catheter(Urinary) Insert & Ass 03,15 (09/27/22 11:04) Ekg Tracing (09/27/22 11:04) Nothing By Mouth (09/27/22 Lunch) Accucheck Stat ONCE (09/27/22 11:04) Ed Iv/Invasive Line Start (09/27/22 11:04) Vital Signs Stroke Patient Q15M (09/27/22 11:04) O2 (09/27/22 11:04) Monitor-Rhythm Ecg Trace Only (09/27/22 11:04) Dysphagia Screening Tool [id number] (09/27/22 11:04) Post Thrombolytic Adminstratio (09/27/22 11:04) Ct Angio Head/Neck (09/27/22 11:32) Iohexol Injection (Omnipaque 350 Mg/Ml 1 (09/27/22 11:45) Ns (Ivpb) (Sodium Chloride 0.9% Ivpb Bag (09/27/22 11:45) Ct Chest W Wo (09/27/22 11:33) Mri Brain W/O Contrast (09/27/22 13:00) Lactated Ringers (Lr 1000 Ml Iv Solution (09/27/22 13:15) Acetaminophen Tablet (Tylenol Tablet) (09/27/22 13:15) Aspirin Tablet (Aspirin Tablet) (09/27/22 14:45) Medications Given in ED Current Medications Medications Dose Ordered Sig/Timbo Route Start Time Stop Time Status Last Admin Dose Admin Acetaminophen 1,000 mg ONCE ONCE PO 09/27/22 13:15 09/27/22 13:16 DC 09/27/22 13:46 1,000 MG Aspirin 325 mg ONCE ONCE PO 09/27/22 14:45 09/27/22 14:46 DC 09/27/22 14:50 325 MG Iohexol 100 ml ONCE ONCE IV 09/27/22 11:45 09/27/22 11:46 DC 09/27/22 12:04 100 ML Lactated Ringer's 1,000 ml @ 0 mls/hr Q0M ONCE IV 09/27/22 13:15 09/27/22 13:16 DC 09/27/22 13:45 1,000 MLS/HR Sodium Chloride 100 ml ONCE ONCE IV 09/27/22 11:45 09/27/22 11:46 DC 09/27/22 12:04 82 ML Vital Signs/I&O 09/27/22 09/27/22 09/27/22 11:03 11:03 15:00 Temp 36.6 36.6 Pulse 68 68 73 Resp 18 18 18 B/P (MAP) 135/97 135/97 (110) 131/72 Pulse Ox 95 95 98 O2 Delivery Room Air Room Air Blood Pressure Mean: 110 FSBG Bedside Testing Finger Stick Blood Glucose: 82 Initial ECG Impression Date: September 27, 2022 Initial ECG Impression Time: 12:32 Initial ECG Rate: 69 Initial ECG Rhythm: Normal Sinus Initial ECG Intervals: Normal Initial ECG Impression: Normal Comment Normal sinus rhythm with no ST elevation or depression. No abnormal intervals or axis deviation. Departure Impression Primary Impression: Dysarthria Additional Impressions: Facial numbness Acute headache Qualified Codes: R51.9 - Headache, unspecified Right arm weakness Disposition: 01 HOME, SELF-CARE Condition: Improved Departure-Patient Inst. Decision time for Depature: 14:39 Referrals: REAL SMITH MD (PCP/Family) Primary Care Physician Patient Instructions: Quitting Smoking ED, Transient Ischemic Attack (DC) Add. Discharge Instructions: Your work-up in the emergency room was unremarkable for evidence of stroke or other acute neurologic problem. The exact cause of your symptoms is uncertain but could be related to atypical migraine. A TIA (transient ischemic attack) or tiny stroke could also be responsible. Follow-up with your primary care provider soon as possible. Take aspirin 81 mg daily. Work toward quitting smoking as quickly as possible. In the short-term, nicotine replacement with patches, gum, or lozenges is acceptable. Return to the emergency room promptly if you develop strokelike symptoms which would include numbness or weakness of any part of the body, difficulty speaking or understanding speech, vision changes, facial drooping, or any other unusual neurologic symptoms. Drink plenty of clear liquids to stay well-hydrated. You may take Tylenol (acetaminophen) 1000 mg every 6 hours as needed for headache or pain. All discharge instructions reviewed with patient and/or family. Voiced understanding. Work/School Note: Work Release Form Date Seen in the Emergency Department: September 27, 2022 Return to Work: September 30, 2022 Restrictions: No Restrictions GREGORY RIVERO MD September 27, 2022 14:23
[2022-09-27] MEDS ORDERED: ASPIRIN 325 MG (5 GR) TABLET PO ONE (14:45)
[2022-09-27 15:00] VITALS: BP 131/72
== END 2022-09-27 15:00 | disposition home or self-care (01) ==
LOC: EDUNIT# 11:02 → ER 11:03
DX: R20.0 Anesthesia of skin (principal); R47.1 Dysarthria and anarthria; R51.9 Headache, unspecified; R53.1 Weakness; F17.210 Nicotine dependence, cigarettes, uncomplicated; Z88.6 Allergy status to analgesic agent
CPT/HCPCS: 36415; 70450; 70496; 70498; 70551; 71045; 71270; 80053; 81000; 82947; 84484; 85025; 85379; 85610; 85730; 93005; 93041

== ENCOUNTER 2023-01-19 16:54 | Emergency (ER) | payer BC ==
[2023-01-19] MEDS ORDERED: morphine INJ 10 MG/ML 1ML (SYR OR VIAL) IVP STA (17:00)
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
[2023-01-19 17:25] LABS: BASOPHILS % (AUTO) 0 % (0-10); EOSINOPHILS # (AUTO) 0.1 10^3/uL (0.0-0.3); EOSINOPHILS % (AUTO) 1 % (0-10); HEMATOCRIT 41 % (35-52); HEMOGLOBIN 14.1 g/dL (11.5-16.0); LYMPHOCYTES # (AUTO) 2.8 10^3/uL (1.0-4.0); LYMPHOCYTES % (AUTO) 31 % (12-44); MEAN CORPUSCULAR HEMOGLOBIN 33 pg (25-34); MEAN CORPUSCULAR HGB CONC 34 g/dL (32-36); MEAN CORPUSCULAR VOLUME 95 fL (80-99); MEAN PLATELET VOLUME 9.6 fL (9.0-12.2); MONOCYTES # (AUTO) 0.7 10^3/uL (0.0-1.0); MONOCYTES % (AUTO) 8 % (0-12); NEUTROPHILS # (AUTO) 5.4 10^3/uL (1.8-7.8); NEUTROPHILS % (AUTO) 60 % (42-75); PLATELET COUNT 304 10^3/uL (130-400)
[2023-01-19 17:30] LABS: POTASSIUM 5.1 MMOL/L (3.6-5.0)
[2023-01-19] MEDS ORDERED: IOHEXOL 350 MG/ML 150 ML (OMNIPAQUE 350) VIAL IV ONE (17:30)
[2023-01-19] MEDS ORDERED: HOLD METFORMIN - RECEIVED CONTRAST 20 ML VIAL IV SCH (17:30)
[2023-01-19] MEDS ORDERED: NS 100 ML (IVPB) BAG IV ONE (17:30)
[2023-01-19 17:35] LABS: CREATININE SERUM 0.88 MG/DL (0.60-1.30)
[2023-01-19] MEDS ORDERED: LACTATED RINGERS 1,000 ML 1,000 ML IV ONE (18:00)
[2023-01-19] MEDS ORDERED: morphine INJ 4 MG/ML 1 ML (VIAL/SYRINGE) IVP ONE ×2 (18:00→19:00)
[2023-01-19 18:08] LABS: ALBUMIN 4.7 GM/DL (3.2-4.5)
[2023-01-19 18:11] LABS: TOTAL PROTEIN 8.1 GM/DL (6.4-8.2)
[2023-01-19 18:13] LABS: BILIRUBIN,TOTAL 0.3 MG/DL (0.1-1.0)
[2023-01-19 18:16] LABS: BILIRUBIN,DIRECT 0.1 MG/DL (0.0-0.3); BILIRUBIN,INDIRECT 0.2 MG/DL
[2023-01-19 18:17] LABS: MAGNESIUM 2.2 MG/DL (1.6-2.4)
[2023-01-19 18:25] LABS: CREATINE KINASE MB 1.3 NG/ML (<6.6)
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
[2023-01-19 18:46] LABS: PROTHROMBIN TIME PATIENT 13.5 SEC (12.2-14.7)
[2023-01-19] MEDS ORDERED: RX-CYCLOBENZAPRINE 10 MG (FLEXERIL) TAB PPK#3 PO STA (18:57)
[2023-01-19] MEDS ORDERED: RX-OXYCODONE/APAP 5-325 MG #4 TAB PK PO PRN (19:00)
[2023-01-19] MEDS ORDERED: diazePAM INJ 10 MG/2 ML syringe IVP ONE (19:00)
[2023-01-19] MEDS ORDERED: CYCL10TA25 PO (19:03)
[2023-01-19] MEDS ORDERED: OXYC1TAB11 PO (19:03)
[2023-01-19 19:32] VITALS: BP 132/80
== END 2023-01-19 19:33 | disposition home or self-care (01) ==
LOC: EDUNIT# 16:54 → ER 16:59
DX: S80.12XA Contusion of left lower leg, initial encounter (principal); F17.210 Nicotine dependence, cigarettes, uncomplicated; V86.99XA Unspecified occupant of other special all-terrain or other off-road motor vehicle injured in nontraffic accident, initial encounter
CPT/HCPCS: 36415; 73590; 73706; 80048; 80076; 82550; 82553; 83615; 83735; 83874; 85025; 85610; 85730